=== PATIENT | male | born 1965 | race Caucasian/White ===

== ENCOUNTER 2017-05-26 17:37 | Emergency (ER) | payer OTHER ==
[2017-05-26] MEDS ORDERED: Clindamycin 150 MG CAP ONE (17:51)
[2017-05-26] MEDS ORDERED: HYDROcodone/Acetaminophen 5/325 mg Tablet ONE (17:58)
== END 2017-05-26 18:09 | disposition home or self-care (01) ==
LOC: BURERS 17:37
DX: J34.0 Abscess, furuncle and carbuncle of nose (principal); I10 Essential (primary) hypertension; F41.9 Anxiety disorder, unspecified; F32.9 Major depressive disorder, single episode, unspecified; F20.9 Schizophrenia, unspecified
CPT/HCPCS: 87070; 87077; 87186; 87205; 99283